=== PATIENT | male | born 1980 | race Caucasian/White ===

== ENCOUNTER 2016-06-27 07:44 | Emergency (ER) | payer BC ==
[~2016-06-27] VITALS: Ht 162.6 cm; Wt 81.6 kg
[~2016-06-27 07:44] MED LIST: NOMEDS XX; VICODIN 7.5/501 EACH PO; VOLTAREN75 MG PO
--- NOTE | 2016-06-27 08:30 | Emergency Room Report ---
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 Y Clinical Suspician of Infection? N Mental Status: 1 - Regular (Normal Baseline) Sepsis Risk:Low Sepsis Risk Have you (or family members/close friends) recently traveled outside the [place]? N If Yes, where/when: Have you had exposure to infectious disease within the past month? N TB? Other? 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 No Angina: No [place]: No Hypertension? No Hyperlipidemia? No CHF? No DVT? No PE? No COPD? No Asthma? No Anemia? No GERD? No Gastric ulcers? No GI Bleed? No Hernia? No Thyroid Problems? No Hypothyroidism? No CVA? No Seizures? No Diabetes? No Renal Insuffiency? No End Stage Renal Disease? No UTI? No Stones? No GB Disease: No Nephritic Syndrome? No Asplenia? No Hepatitis? No Sickle Cell Disease? No Arthritis? No Migraines? No Cataracts? No Glaucoma? No MRSA? No HIV? No TB? No Anxiety? No Depression? No Cancer? No More? No Immunization Hx DT/Tetanus 02/03/10 Surgical Hx Previous Surgery?Y LYMPH NODE REMOVED NECK T/A ACL/MENISCUS LT KNEE Social History Smoking Hx Smoker: Never Smoker Tobacco: No Alcohol Alcohol: No Drugs none Review of Systems All Other Systems Reviewed and Negative Constitutional see HPI, fever Eyes denies drainage ENT denies: ear pain, epistaxis, throat pain. Respiratory see HPI, cough, denies wheezing Cardiovascular denies chest pain, denies palpitations, denies syncope Gastrointestinal denies abdominal pain, denies diarrhea, denies vomiting Genitourinary denies: dysuria, frequency, hesitancy, hematuria. Musculoskeletal denies back pain, denies joint pain, denies joint swelling, denies neck pain Skin denies rash Psychiatric/Neurological denies headache, denies seizure Physical Exam Vital Signs Vital Signs Date Time Temp Pulse Resp B/P Pulse O2 O2 Flow FiO2 Ox Delivery Rate 06/27 0753 100.7 88 20 128/85 94 - WBC >12,000 or <4,000 or 10% bands? 2 or more SIRS Criteria Met? B/P:128/85 MAP:99 Creatinine >2.0? UA output<0.5ml/kg/hr for 2 hrs? Platelet count >100,000? Lactate >2.0mmol/1? INR >1.2 or PTT > than 60 sec? Evidence of Organ Dysfunction? Provider documented clinical suspician of infection? N Sepsis Criteria Count: 1 Sepsis Risk: Low Sepsis Risk General Appearance no apparent distress Eye Exam - bilateral eye PERRL, bilateral eye EOMI Ear, Nose, Throat normal ENT inspection Neck supple Respiratory Status No: respiratory distress. 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 No Results/Orders Laboratory Tests 06/27/16 0753: Influenza Type A Ag DETECTED H, Influenza Type B Ag NOT DETECTED Current Medication Orders Sig/Moriah Start time Last Medication Dose Route Stop Time Status Admin Acetaminophen 1,000 MG ONCE ONE 06/27 814 DC 06/27 PO 06/27 0816 0810 Acetaminophen 0 .STK-MED ONE 06/27 0809 DC PO Orders Procedure Date/time Status INFLUENZA A&B ANTIGENS 06/27 0751 Complete Departure Departure Time of Disposition 0829 Disposition DC Home or Self Care(routine) Clinical Impression Primary Impression: Flu syndrome Condition STABLE Patient Instructions DI for H1N1 Influenza -- Adult Additional Instructions advil/tyenol and see pcp for follow up and use meds Discharge Counseling Counseled pt/family regarding diagnosis, test results, medications/RX, follow up needs Prescriptions Current Visit Scripts Oseltamivir Phosphate (Tamiflu 75MG Capsule) 75 MG PO BID #10 CAP ED Critical Care Critical Care No at 0838
--- NOTE | 2016-06-27 08:30 | Emergency Room Report ---
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 Y Clinical Suspician of Infection? N Mental Status: 1 - Regular (Normal Baseline) Sepsis Risk:Low Sepsis Risk Have you (or family members/close friends) recently traveled outside the [place]? N If Yes, where/when: Have you had exposure to infectious disease within the past month? N TB? Other? 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 No Angina: No [place]: No Hypertension? No Hyperlipidemia? No CHF? No DVT? No PE? No COPD? No Asthma? No Anemia? No GERD? No Gastric ulcers? No GI Bleed? No Hernia? No Thyroid Problems? No Hypothyroidism? No CVA? No Seizures? No Diabetes? No Renal Insuffiency? No End Stage Renal Disease? No UTI? No Stones? No GB Disease: No Nephritic Syndrome? No Asplenia? No Hepatitis? No Sickle Cell Disease? No Arthritis? No Migraines? No Cataracts? No Glaucoma? No MRSA? No HIV? No TB? No Anxiety? No Depression? No Cancer? No More? No Immunization Hx DT/Tetanus 02/03/10 Surgical Hx Previous Surgery?Y LYMPH NODE REMOVED NECK T/A ACL/MENISCUS LT KNEE Social History Smoking Hx Smoker: Never Smoker Tobacco: No Alcohol Alcohol: No Drugs none Review of Systems All Other Systems Reviewed and Negative Constitutional see HPI, fever Eyes denies drainage ENT denies: ear pain, epistaxis, throat pain. Respiratory see HPI, cough, denies wheezing Cardiovascular denies chest pain, denies palpitations, denies syncope Gastrointestinal denies abdominal pain, denies diarrhea, denies vomiting Genitourinary denies: dysuria, frequency, hesitancy, hematuria. Musculoskeletal denies back pain, denies joint pain, denies joint swelling, denies neck pain Skin denies rash Psychiatric/Neurological denies headache, denies seizure Physical Exam Vital Signs Vital Signs Date Time Temp Pulse Resp B/P Pulse O2 O2 Flow FiO2 Ox Delivery Rate 06/27 0753 100.7 88 20 128/85 94 - WBC >12,000 or <4,000 or 10% bands? 2 or more SIRS Criteria Met? B/P:128/85 MAP:99 Creatinine >2.0? UA output<0.5ml/kg/hr for 2 hrs? Platelet count >100,000? Lactate >2.0mmol/1? INR >1.2 or PTT > than 60 sec? Evidence of Organ Dysfunction? Provider documented clinical suspician of infection? N Sepsis Criteria Count: 1 Sepsis Risk: Low Sepsis Risk General Appearance no apparent distress Eye Exam - bilateral eye PERRL, bilateral eye EOMI Ear, Nose, Throat normal ENT inspection Neck supple Respiratory Status No: respiratory distress. Cardiovascular regular rate/rhythm Peripheral Pulses Pulses normal Yes Gastrointestinal soft, no organomegaly, no pulsatile mass, no guarding, no rebound Extremities normal inspection Strength 4 Upper Ext (L), 4 Upper Ext (R), 4 Lower Ext (L), 4 Lower Ext (R) Neurologic alert, change over II-XII nml as tested, no motor/sensory deficits Reflexes Reflexes normal Yes Mental status normal mood/affect Skin intact Medical Decision Making LABS/Meds/Orders Pt receiving controlled substance in ED? No Results/Orders Laboratory Tests 06/27/16 0753: Influenza Type A Ag DETECTED H, Influenza Type B Ag NOT DETECTED Current Medication Orders Sig/Moriah Start time Last Medication Dose Route Stop Time Status Admin Acetaminophen 1,000 MG ONCE ONE 06/27 814 DC 06/27 PO 06/27 0816 0810 Acetaminophen 0 .STK-MED ONE 06/27 0809 DC PO Orders Procedure Date/time Status INFLUENZA A&B ANTIGENS 06/27 0751 Complete Departure Departure Time of Disposition 0829 Disposition DC Home or Self Care(routine) Clinical Impression Primary Impression: Flu syndrome Condition STABLE Patient Instructions DI for H1N1 Influenza -- Adult Additional Instructions advil/tyenol and see pcp for follow up and use meds Discharge Counseling Counseled pt/family regarding diagnosis, test results, medications/RX, follow up needs Prescriptions Current Visit Scripts Oseltamivir Phosphate (Tamiflu 75MG Capsule) 75 MG PO BID #10 CAP ED Critical Care Critical Care No at 0838
[2016-06-27] MEDS ORDERED: TAMIFLU 75MG CA75 MG PO (08:38)
[2016-06-27 08:44] VITALS: BP 123/82
== END 2016-06-27 08:45 | disposition home or self-care (01) ==
LOC: ER 07:44
DX: J10.1 Influenza due to other identified influenza virus with other respiratory manifestations (principal)

== ENCOUNTER 2016-07-31 10:07 | Emergency (ER) | payer BC ==
[~2016-07-31] VITALS: Ht 162.6 cm; Wt 81.6 kg
[~2016-07-31 10:07] MED LIST changes: +TAMIFLU 75MG CA75 MG PO
[2016-07-31 10:42] LABS: UTC STREP SCREEN NOT DETECTED (NOTDETECTED)
[2016-07-31] MEDS ORDERED: FLONASE 50 MCG16 GM (10:56)
--- NOTE | 2016-07-31 10:57 | Urgent Treatment Center Report ---
History of Present Issue Date/Time Seen by Provider 07/31/16 1048 Visit Reason Pt arrived:Walked Presenting Problem:PT C/O SORE AND BURNING THROAT, CONGESTION, AND CHILLS SINCE LAST NIGHT Location if Accident: Onset of symptoms date/time:/ or onset unknown for:MEDICAL HX UNKNOWN Have you (or family members/close friends) recently traveled outside the [place]? N If Yes, where/when: Have you had exposure to infectious disease within the past month? TB? Other? Specify: c/o sore throat, head congestion, ear pressure all starting last night. 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 Hasn't taken or tried anything for symptoms other than mucinex "to help it drain". No known fevers but felt hot/cold throughout the night. Denies any difficulty swallowing "just mendez". No cough. Source patient Exam Limitations no limitations ALLERGIES Coded Allergies: No Known Allergies (06/27/16) Home Medications Active Scripts Oseltamivir Phosphate (Tamiflu 75MG Capsule) 75 MG PO BID #10 CAP Prov: 06/27/16 History Medical History General CAD? No Angina: No [place]: No Hypertension? No Hyperlipidemia? No CHF? No DVT? No PE? No COPD? No Asthma? No Anemia? No GERD? No Gastric ulcers? No GI Bleed? No Hernia? No Thyroid Problems? No Hypothyroidism? No CVA? No Seizures? No Diabetes? No Renal Insuffiency? No UTI? No Stones? No BPH? No GB Disease: No Nephritic Syndrome? No Asplenia? No Hepatitis? No Sickle Cell Disease? No Arthritis? No Migraines? No Cataracts? No Glaucoma? No MRSA? No HIV? No TB? No Anxiety? No Depression? No Cancer? No More? No Immunization HX DT/Tetanus 02/03/10 Surgical Hx Previous Surgery?Y LYMPH NODE REMOVED NECK T/A ACL/MENISCUS LT KNEE Social History Smoking Hx Smoker: Never Smoker Tobacco: No Alcohol Alcohol: No Review of Systems All Other Systems Reviewed and Negative Constitutional see HPI Eyes denies drainage ENT nose congestion. denies: ear discharge, nose discharge, throat swelling. Respiratory denies shortness of breath, denies wheezing Cardiovascular denies chest pain Gastrointestinal denies no symptoms reported Musculoskeletal denies other (aches) Skin denies rash Physical Exam Vital Signs Vital Signs Date Time Temp Pulse Resp B/P Pulse O2 O2 Flow FiO2 Ox Delivery Rate 07/31 1018 98.6 84 16 128/82 96 General Appearance normal appearance, no apparent distress Eye Exam - bilateral eye normal exam Ear, Nose, Throat normal ENT inspection (x/ cobblestoning) Neck non-tender, supple Respiratory Status No: respiratory distress (no cough). Lung Sounds anterior: lungs clear. posterior: lungs clear. bilateral: lungs clear. Cardiovascular regular rate/rhythm, no murmur Neurologic alert Skin normal color, warm/dry Lymphatic no adenopathy (cervical) Medical Decision Making LABS/Meds/Orders Pt receiving controlled substance in ED? No Results/Orders Laboratory Tests 07/31/16 1022: Influenza Type A Ag NOT DETECTED, Influenza Type B Ag NOT DETECTED, Group A Strep Screen NOT DETECTED Orders Procedure Date/time Status [facility] STREP SCREEN 07/31 1022 Complete UTC FLU A,B 07/31 1022 Complete Departure Departure Time of Disposition 1053 Disposition DC Home or Self Care(routine) Clinical Impression Primary Impression: Upper respiratory virus Condition STABLE Referrals Wesley ROTHMAN,Nimesh (Family) Follow up immediately for new or worsening symptoms OR no noticeable improvement over the next 48-72 hours. Patient Instructions DI for Viral Upper Respiratory Infection -- Adult Additional Instructions Lots of rest Increase fluids, water, gatorade, powerade Alternate tylenol and/or ibuprofen for fever/aches/pain warm salt water gargles sleep elevated humidifier/vaporizer flonase 2 sprays each nostril daily but may take 2-3 days to notice improvement with it. Sudafed might help. Ask your pharmacist for it. No prescription necessary. Discharge Counseling Counseled pt/family regarding diagnosis, test results, medications/RX, home care, follow up needs Prescriptions Current Visit Scripts Fluticasone Propionate (Flonase 50 Mcg Nasal [place]) 2 SPRAY NA DAILY #1 BOT at 1058
[2016-07-31 10:58] VITALS: BP 128/82
== END 2016-07-31 10:59 | disposition home or self-care (01) ==
LOC: UTC 10:07
PROVIDERS: Nurse Practitioner Family
DX: J06.9 Acute upper respiratory infection, unspecified (principal)

== ENCOUNTER 2017-03-19 16:20 | Emergency (ER) | payer OTHER ==
[~2017-03-19] VITALS: Ht 162.6 cm; Wt 81.6 kg
[~2017-03-19 16:20] MED LIST changes: +FLONASE 50 MCG16 GM
--- OUTSIDE RECORDS SUMMARY | 2017-03-19 16:25 | External Medical Summary Rpt | CCD ---
Author Author [employer] Organization [employer] Address Unknown Phone Unavailable Purpose Continuity of Care Document - through 2016
--- OUTSIDE RECORDS SUMMARY | 2017-03-19 16:25 | External Medical Summary Rpt | CCD ---
Author Author , ANATOLY LEDBETTER Address Unknown Phone [email or web address] Purpose Continuity of Care Document - through 2016 Problems Code Diagnosis DOS Provider Status J11.1 FLU DUE TO UNIDENTIFIE D INFLUENZA VIRUS W OTH RESP MANIFEST N28.9 DISORDER OF KIDNEY AND URETER, UNSPECIFIED R07.9 CHEST PAIN, UNSPECIFIED
--- OUTSIDE RECORDS SUMMARY | 2017-03-19 16:25 | External Medical Summary Rpt | CCD ---
Author Author , ANATOLY LEDBETTER Address Unknown Phone [email or web address] Purpose Continuity of Care Document - through 2016 Problems Code Diagnosis DOS Provider Status J11.1 FLU DUE TO UNIDENTIFIE D INFLUENZA VIRUS W OTH RESP MANIFEST N28.9 DISORDER OF KIDNEY AND URETER, UNSPECIFIED R07.9 CHEST PAIN, UNSPECIFIED
--- OUTSIDE RECORDS SUMMARY | 2017-03-19 16:26 | External Medical Summary Rpt | CCD ---
Author Author , ANATOLY Organization AN[employer] Address Unknown Phone [email or web address] Immunization Name Date Rout CVX Reac Dose Comm Prov Is Faci e tion ent ider Refu lity Give sed n Hep 05-2 43 999 Hist H149 No H149 B, 7-20 oric adul 08 al t Info rmat ion - Sour ce Unsp ecif ied Hep 01-2 43 999 Hist H149 No H149 B, 4-20 oric adul 08 al t Info rmat ion - Sour ce Unsp ecif ied Hep 12-1 43 999 Hist H149 No H149 B, 0-20 oric adul 07 al t Info rmat ion - Sour ce Unsp ecif ied
--- OUTSIDE RECORDS SUMMARY | 2017-03-19 16:26 | External Medical Summary Rpt ---
Author Author ANATOLY Mckoy, [employer] Organization [employer] Address Unknown Phone Unavailable
--- OUTSIDE RECORDS SUMMARY | 2017-03-19 16:26 | External Medical Summary Rpt | CCD ---
Author Author , ANATOLY Organization [employer] Address Unknown Phone [email or web address] Immunization Name Date Rout CVX Reac Dose [...]
--- NOTE | 2017-03-19 17:01 | Urgent Treatment Center Report ---
History of Present Issue Date/Time Seen by Provider 03/19/17 1701 Visit Reason Pt arrived:Walked Presenting Problem:PT C/O OF SINUS PRESSURE AND DRAINAGE, COUGH, AND HEADACHE Location if Accident: Onset of symptoms date/time:03/18/1709/27/1799 or onset unknown for: Have you (or family members/close friends) recently traveled outside the [place]? N If Yes, where/when: Have you had exposure to infectious disease within the past month? TB? Other? Specify: c/o "I think I have a sinus infection". Sinus pressure, rhinorrhea, nasal congestion, PND, mild sore throat, cresencio ears popping, maxillary sinus pain all starting last night. 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 Hasn't taken or tried anything for symptoms. No fever, aches, chills. Source patient Exam Limitations no limitations ALLERGIES Coded Allergies: No Known Allergies (06/27/16) Home Medications Active Scripts Oseltamivir Phosphate (Tamiflu 75MG Capsule) 75 MG PO BID #10 CAP Prov: 06/27/16 Fluticasone Propionate (Flonase 50 Mcg Nasal [place]) 2 SPRAY NA DAILY #1 BOT Prov: 07/31/16 History Medical History General CAD? No Angina: No [place]: No Hypertension? No Hyperlipidemia? No CHF? No DVT? No PE? No COPD? No Asthma? No Anemia? No GERD? No Gastric ulcers? No GI Bleed? No Hernia? No Thyroid Problems? No Hypothyroidism? No CVA? No Seizures? No Diabetes? No Renal Insuffiency? No UTI? No Stones? No BPH? No GB Disease: No Nephritic Syndrome? No Asplenia? No Hepatitis? No Sickle Cell Disease? No Arthritis? No Migraines? No Cataracts? No Glaucoma? No MRSA? No HIV? No TB? No Anxiety? No Depression? No Cancer? No More? No Immunization HX DT/Tetanus 02/03/10 Surgical Hx Previous Surgery?Y LYMPH NODE REMOVED NECK T/A ACL/MENISCUS LT KNEE Social History Smoking Hx Smoker: Never Smoker Tobacco: No Type Cigarettes Alcohol Alcohol: No Review of Systems All Other Systems Reviewed and Negative Constitutional see HPI, denies malaise Eyes denies drainage ENT see HPI. denies: ear discharge, throat swelling. Respiratory cough (nonprod), denies shortness of breath, denies wheezing Cardiovascular denies chest pain Gastrointestinal denies no symptoms reported Musculoskeletal see HPI Skin denies rash Psychiatric/Neurological headache (mild "pressure like") Physical Exam Vital Signs Vital Signs Date Time Temp Pulse Resp B/P Pulse O2 O2 Flow FiO2 Ox Delivery Rate 03/19 1650 98.1 61 20 137/92 98 General Appearance normal appearance, no apparent distress Eye Exam - bilateral eye normal exam Ear, Nose, Throat cresencio eac and tms unremarkable, nasal congstion, clear rhinorrhea, normal pharynx, no frontal sinus tenderness and mild maxillary tenderness bilaterally Neck non-tender, supple Respiratory Status No: respiratory distress, productive cough, non productive cough. Lung Sounds anterior: lungs clear. posterior: lungs clear. bilateral: lungs clear. Cardiovascular regular rate/rhythm, no peripheral edema, no murmur Neurologic alert, oriented x 3 Skin normal color, warm/dry Lymphatic no adenopathy Medical Decision Making LABS/Meds/Orders Pt receiving controlled substance in ED? No Departure Departure Time of Disposition 1706 Disposition DC Home or Self Care(routine) Clinical Impression Primary Impression: Upper respiratory virus Secondary Impressions: Maxillary sinusitis Qualifiers: Chronicity: acute Recurrence: non-recurrent Qualified Code: J01.00 - Acute maxillary sinusitis, unspecified Condition STABLE Referrals NO REFERRAL Follow up with primary care for new, worsening or persistant symptoms. 911/er for any difficulty breathing Patient Instructions DI for Viral Upper Respiratory Infection -- Adult Additional Instructions * No sign of bacterial infection. Likely viral. Virus can take 7-14 days to run their course * Monitor Temp. Follow up if fevre develops * Encourage fluids, water, gatorade, powerade, pedialyte if /toddler/child * warm salt water gargles * warm fluids * sore throat lozenges * sleep elevated * humidifier/vaporizer * flonase 2 sprays each nostril daily but may take 2-3 days to notice improvement with it. * Bromfed may cause drowsiness. Know how it effects you (or your child) before driving, caring for small children, or sending your child to school. No other antihistamines/allergy medications while taking bromfed. * Start steroid today. Helps with inflammation therefore, cough and pressure. Follow directions on package. Rvwd side effects. Pt reports they have taken them before. * Sinus rinses Discharge Counseling Counseled pt/family regarding diagnosis, medications/RX, home care, follow up needs Prescriptions Current Visit Scripts Fluticasone Propionate (Flonase 50 Mcg Nasal [place]) 2 SPRAY NA DAILY #1 BOT Prednisone (Prednisone 20MG) 20 MG PO BID #10 TAB D-METHORPHAN HB/P-EPD HCL/BPM (Bromfed Dm Cough Syrup) 10 ML PO QIDP PRN cough #240 ML at 3925
[2017-03-19] MEDS ORDERED: FLONASE 50 MCG16 GM (17:09)
[2017-03-19] MEDS ORDERED: BROMFED DM COU118 ML PO (17:09)
[2017-03-19] MEDS ORDERED: PREDNISONE 20MG20 MG PO (17:09)
[2017-03-19 17:10] VITALS: BP 137/92
== END 2017-03-19 17:10 | disposition home or self-care (01) ==
LOC: UTC 16:20
DX: J01.00 Acute maxillary sinusitis, unspecified (principal); F17.210 Nicotine dependence, cigarettes, uncomplicated